=== PATIENT | male | born 1955 | race Caucasian/White ===

== ENCOUNTER 2018-06-27 11:56 | Emergency (ER) | payer BC ==
[~2018-06-27] VITALS: Ht 170.2 cm; Wt 93.0 kg
[2018-06-27 12:00] VITALS: BP_SYST 146
[2018-06-27] MEDS ORDERED: CARV6.2554 PO (12:58)
[2018-06-27] MEDS ORDERED: ROPI4TAB3 PO (12:58)
[2018-06-27] MEDS ORDERED: LISI10TA5 PO (12:58)
[2018-06-27] MEDS ORDERED: SIMV20TA2 PO (12:58)
[2018-06-27] MEDS ORDERED: CARB1TAB10 PO (12:58)
[2018-06-27] MEDS ORDERED: COM200 PO (12:58)
[2018-06-27] MEDS ORDERED: ASA81 PO (12:58)
[2018-06-27] MEDS ORDERED: cefTRIAXone 1 GM in LIDOCAINE 1%, 20 ML MDV 2.1 ML IM ONE (13:15)
[2018-06-27 13:30] VITALS: BP_SYST 138
== END 2018-06-27 13:30 | disposition home or self-care (01) ==
LOC: SED 11:56
DX: J18.8 Other pneumonia, unspecified organism (principal); R03.0 Elevated blood-pressure reading, without diagnosis of hypertension; R10.9 Unspecified abdominal pain; J44.9 Chronic obstructive pulmonary disease, unspecified; I10 Essential (primary) hypertension; Z79.82 Long term (current) use of aspirin; Z79.899 Other long term (current) drug therapy
CPT/HCPCS: 71045; 93005; 96372; 99283; J0696; J2001